=== PATIENT | female | born 1985 | race Caucasian/White ===

== ENCOUNTER 2017-08-12 06:07 | Inpatient (IN) | payer OTHER ==
[2017-08-12] VITALS (92 sets, daily range): BP systolic 71–149; BP diastolic 46–119; PULSE 82–232; RESP 17–19; TEMP 97.5–98.3
[~2017-08-12] VITALS: Ht 160 cm; Wt 73.0 kg
[2017-08-12] MEDS ORDERED: PENICILLIN G POT 5,000,000 UNITS/NS 100 ML (Mini-Bag Plus) IV ONE ×2 (07:00)
[2017-08-12] MEDS ORDERED: LIDOCAINE HCL 1% 50 ML VIAL I-DERMAL PRN (07:00)
[2017-08-12] MEDS ORDERED: MINERAL OIL 10 ML VIAL TOPICAL PRN ×2 (07:00→07:30)
[2017-08-12] MEDS ORDERED: CITRIC ACID-SODIUM CITRATE LIQ 30 ML UDC PO SCH (07:00)
[2017-08-12] MEDS ORDERED: OXYTOCIN 30 UNITS 500ML PREMIX IV ONE (07:00)
[2017-08-12] MEDS ORDERED: NS 500 ML BOLUS IV PRN (07:00)
[2017-08-12] MEDS: LACTATED RINGER'S 1000 ML IV SCH ×2 (07:00→15:00)
[2017-08-12] MEDS ORDERED: NS 1000 ML IV PRN (07:00)
[2017-08-12] MEDS ORDERED: LACTATED RINGER'S 1000 ML BOLUS IV PRN (07:00)
[2017-08-12] MEDS ORDERED: LIDOCAINE HCL 1% 50 ML VIAL INFIL PRN (07:00)
--- NOTE | 2017-08-12 07:24 | HHI.HP ---
HPI Chief Complaint CC: 39 weeks with favorable Mckee score SALLY 3 Date Seen: Aug 12, 2017 Time Seen: 07:18 Travel History International Travel<30 Days: No Contact w/Intl Traveler<30Days: No Known Affected Area: No History of Present Illness HPI 31 yo mwf at 39 weeks desirous of induction. 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 PNC with HOGA beginning 8 weeks EDC by LMP and imaging. No PTL, GDM or HTN. Normal course with reassuring evaluations. proven to 6 pounds 11 ounces. GBS+ GFM no BARNEY,N,V,blurred vision or RUQT. No leaking or bleeding. Mild UCs with some show last night. History Past Medical History Medical History: Denies Significant Hx Past Surgical History Narrative Surgical umbilical hernia repair in 2010 Family History Family History: Negative Social History Alcohol Use: No Tobacco Use: No Substance Abuse: No Allergies-Medications (Allergen,Severity, Reaction): Coded Allergies: No Known Allergies (Unverified , 08/12/17) Review of Systems General / Constitutional: No: Fever, Weight Gain, Chills, Other Physical Exam Vital Signs Date Time Temp Pulse Resp B/P (MAP) Pulse Ox O2 Delivery O2 Flow Rate FiO2 08/12/17 06:51 104 116/78 (91) Narrative GENERAL: Well-nourished, well-developed patient. SKIN: Warm and dry. HEAD: Normocephalic and atraumatic. EYES: No scleral icterus. No injection or drainage. ENT: No nasal drainage noted. Mucous membranes pink. Airway patent. NECK: Supple, trachea midline. No JVD. CARDIOVASCULAR: Regular rate and rhythm without murmurs, gallops, or rubs. RESPIRATORY: Breath sounds equal bilaterally. No accessory muscle use. BREASTS: Bilateral exam showed no masses , no retractions, no nipple discharge. ABDOMEN/GI: Abdomen soft, non-tender, bowel sounds present, no rebound, no guarding term fundus EFW 7 1/2 pelvis adequate 50%/2/-2 AROM ? light meconium with copious fluid head gently directed onto cervix and well applied strip category 1 EXTREMITIES: No cyanosis or edema. BACK: Nontender without obvious deformity. No CVA tenderness. NEUROLOGICAL: Awake and alert. Motor and sensory grossly within normal limits. Five out of 5 muscle strength in all muscle groups. Normal speech. Caprini VTE Risk Assessment Caprini VTE Risk Assessment: No/Low Risk (score <= 1) Caprini Risk Assessment Model Point Value = 1 Point Value = 2 Point Value = 3 Point Value = 5 Age 41-60 Minor surgery BMI > 25 kg/m2 Swollen legs Varicose veins or History of unexplained or recurrent spontaneous Oral contraceptives or hormone replacement Sepsis (< 1 month) Serious lung disease, including pneumonia (< 1 month) Abnormal pulmonary function Acute myocardial infarction Congestive heart failure (< 1 month) History of inflammatory bowel disease Medical patient at bed rest Age 61-74 Arthroscopic surgery Major open surgery (> 45 min) Laparoscopic surgery (> 45 min) Malignancy Confined to bed (> 72 hours) Immobilizing plaster cast Central venous access Age >= 75 History of VTE Family history of VTE Factor V Leiden Prothrombin [id number] Lupus anticoagulant Anticardiolipin antibodies Elevated serum homocysteine Heparin-induced thrombocytopenia Other congenital or acquired thrombophilia Stroke (< 1 month) Elective arthroplasty Hip, pelvis, or leg fracture Acute spinal cord injury (< 1 month) Prophylaxis Regimen Total Risk Factor Score Risk Level Prophylaxis Regimen 0-1 Low Early ambulation 2 Moderate Order ONE of the following: *Sequential Compression Device (SCD) *Heparin 5000 units SQ BID 3-4 Higher Order ONE of the following medications: *Heparin 5000 units SQ TID *Enoxaparin/Lovenox 40 mg SQ daily (WT < 150 kg, CrCl > 30 mL/min) *Enoxaparin/Lovenox 30 mg SQ daily (WT < 150 kg, CrCl > 10-29 mL/min) *Enoxaparin/Lovenox 30 mg SQ BID (WT < 150 kg, CrCl > 30 mL/min) AND/OR *Sequential Compression Device (SCD) 5 or more Highest Order ONE of the following medications: *Heparin 5000 units SQ TID (Preferred with Epidurals) *Enoxaparin/Lovenox 40 mg SQ daily (WT < 150 kg, CrCl > 30 mL/min) *Enoxaparin/Lovenox 30 mg SQ daily (WT < 150 kg, CrCl > 10-29 mL/min) *Enoxaparin/Lovenox 30 mg SQ BID (WT < 150 kg, CrCl > 30 mL/min) AND *Sequential Compression Device (SCD) Data Data Orders Orders Admit To Inpatient (08/12/17 ) Vital Signs (Adult) .Per protocol (08/12/17 06:20) Activity Oob Ad Mary (08/12/17 06:20) Heart (08/12/17 06:20) Amnioinfusion (08/12/17 06:20) Urinary Catheter Management .ONCE (08/12/17 06:20) Diet Liquid (08/12/17 Breakfast) Complete Blood Count With Diff (08/12/17 06:20) Hold Clot (08/12/17 06:20) Abo/Rh Blood Type (08/12/17 06:20) Urinalysis - C+S If Indicated (08/12/17 06:20) Drug Screen, Random Urine (08/12/17 06:20) Resp Oxygen Non Rebreathe Mask (08/12/17 ) ^ Epidural / Intrathecal Infus (08/12/17 06:20) Lactated Ringer's 1000 Ml Inj (Lr 1000 M (08/12/17 07:00) Lactated Ringer's 1000 Ml Inj (Lr 1000 M (08/12/17 07:00) Sodium Chlorid 0.9% 500 Ml Inj (Ns 500 M (08/12/17 07:00) Sodium Chlor 0.9% 1000 Ml Inj (Ns 1000 M (08/12/17 07:00) Lidocaine 1% Inj (50 Ml) (Xylocaine 1% I (08/12/17 07:00) Citric Acid-Sodium Citrate Liq (Bicitra (08/12/17 07:00) Fentanyl Inj (Fentanyl Inj) (08/12/17 07:00) Fentanyl Inj (Fentanyl Inj) (08/12/17 07:00) Penicillin G Potassium Inj (Pfizerpen-G (08/12/17 07:00) Penicillin G Potassium Inj (Pfizerpen-G (08/12/17 11:00) Oxytocin 30 Units-500ml Premix (Pitocin (08/12/17 07:00) Lidocaine 1% Inj (50 Ml) (Xylocaine 1% I (08/12/17 07:00) Light Mineral Oil (Muri-Lube Oil) (08/12/17 07:00) ^ Non Stress Test (08/12/17 07:17) Response To Medication .Post New Med Administration, Reaction (08/12/17 07:17) ^ Discontinue Medication (08/12/17 07:17) Oxytocin Drip (2-2-30) (08/12/17 07:30) Assessment/Plan Problem List: (1) Group B streptococcal carriage complicating ICD Codes: O99.820 - Streptococcus B carrier state complicating (2) Third trimester ICD Codes: Z34.93 - Encounter for supervision of normal , unspecified , third trimester Assessment and Plan GBS prophylaxis augment if needed epidural if needed anticipate colpo at 6 weeks pp Danielle Charles MD Aug 12, 2017 07:24
[2017-08-12 07:25] LABS: AUTOMATED NEUTROPHIL # 4.8 TH/MM3 (1.8-7.7); BASOPHIL % 0.3 % (0.0-2.0); EOSINOPHIL # 0.1 TH/MM3 (0-0.4); EOSINOPHIL % 1.1 % (0.0-4.0); HEMATOCRIT 36.9 % (35.0-46.0); HEMOGLOBIN 12.5 GM/DL (11.6-15.3); LYMPH % 24.5 % (9.0-44.0); LYMPHOCYTE # 1.8 TH/MM3 (1.0-4.8); MEAN CELL VOLUME 92.4 FL (80.0-100.0); MEAN CORPUSCULAR HEMOGLOBIN 31.3 PG (27.0-34.0); MEAN CORPUSCULAR HGB CONC 33.9 % (32.0-36.0); MEAN PLATELET VOLUME 8.6 FL (7.0-11.0); MONO % 8.8 % (0.0-8.0); MONOCYTE # 0.7 TH/MM3 (0-0.9); NEUT % 65.3 % (16.0-70.0); PLATELET COUNT 187 TH/MM3 (150-450); RED BLOOD COUNT 3.99 MIL/MM3 (4.00-5.30); RED CELL DISTRIBUTION WIDTH 13.2 % (11.6-17.2); WHITE BLOOD COUNT 7.4 TH/MM3 (4.0-11.0)
[2017-08-12] MEDS ORDERED: OXYTOCIN 30 UNITS-500ML PREMIX 500 ML IV SCH ×2 (07:30→18:45)
[2017-08-12] MEDS ORDERED: PENICILLIN G POTASSIUM INJ 5,000,000 UNITS in SODIUM CHLORIDE 0.9% INJ 100 ML IV ONE (07:30)
[2017-08-12] MEDS ORDERED: LIDOCAINE HCL 1% 20 ML VIAL INFIL PRN (07:30)
[2017-08-12] MEDS ORDERED: OXYTOCIN 30 UNITS-500ML PREMIX 500 ML IV ONE (07:30)
[2017-08-12 07:53] LABS: BACTERIA, URINE OCC /hpf; BILIRUBIN, URINE NEG (NEG); BLOOD, URINE SMALL (NEG); GLUCOSE,URINE NEG (NEG); HYALINE CAST, URINE 1 /lpf (RARE); KETONE, URINE NEG (NEG); MUCUS URINE FEW /lpf (OCC); NITRITE,URINE NEG (NEG); PH, URINE 5.5 (5.0-8.5); SQUAMOUS EPITHELIAL CELL URINE 9 /hpf (0-5); URINE COLOR YELLOW (YELLW/STRAW); URINE LEUKOCYTE ESTERASE MOD (NEG)
[2017-08-12] MEDS: PENICILLIN G POT 2,500,000 UNITS/NS 100 ML IV SCH ×6 (11:07→18:16)
[2017-08-12] MEDS: PENICILLIN G POTASSIUM INJ 2,500,000 UNITS in SODIUM CHLORIDE 0.9% INJ 100 ML IV SCH ×2 (12:00→16:00)
[2017-08-12] MEDS ORDERED: ePHEDrine/NS 25 MG/5 ML SYRINGE ONE (12:15)
[2017-08-12] MEDS ORDERED: fentaNYL 2MCG-BUPIV 0.125% INJ 100 ML ONE (12:15)
[2017-08-12] MEDS ORDERED: NO SYSTEM NARCOTICS PRN (14:15)
[2017-08-12] MEDS ORDERED: ePHEDrine/NS 25 MG/5 ML SYRINGE IV PUSH PRN (14:15)
[2017-08-12] MEDS ORDERED: fentaNYL 2MCG-BUPIV 0.125% 100 ML EPIDURAL SCH (14:15)
[2017-08-12] MEDS ORDERED: DO NOT ADMINISTER ANTICOAGULANTS PRN (14:15)
[2017-08-12] MEDS ORDERED: MEASLES, MUMPS, RUBELLA VACCINE 0.5 ML VIAL SQ ONE (16:00)
[2017-08-12] MEDS ORDERED: DIPHTH/TETANUS/ACEL PERTUSSIS (BOOSTER) 0.5 ML VIAL/PFS IM ONE (16:00)
--- NOTE | 2017-08-12 17:42 | PD.OB.DELI ---
Weeks gestation: 39 Gest age assessed date: Aug 12, 2017 Gest age assessed time: 17:41 Pt started active labor?: Yes Active labor start date: Aug 12, 2017 Active labor start time: 08:00 Medical induction of labor?: Yes Medical induction start date: Aug 12, 2017 Medical induction start time: 08:00 Artificial rupture of membrane: Yes Artificial ROM date: Aug 12, 2017 Artifical ROM time: 08:00 Anesthesia: Epidural Episiotomy: None Vaginal Delivery: Normal Presentation: Occiput anterior Nuchal Cord: None Delayed cord clamping (45 sec): Yes Infant: Male Delivery date: Aug 12, 2017 Delivery time: 17:41 One Minute : 8 Five Minute : 9 Weight: 8 pounds Placenta: Spontaneous delivery Laceration: No lacerations Estimated blood loss: 200 Danielle Charles MD Aug 12, 2017 17:42
[2017-08-12] MEDS ORDERED: IBUPROFEN 800 MG TAB PO PRN (18:30)
[2017-08-12] MEDS ORDERED: SODIUM CHLORIDE 0.9% FLUSH 10 ML FLUSH IV FLUSH PRN (18:30)
[2017-08-12] MEDS ORDERED: ACETAMINOPHEN 325 MG TAB PO PRN (18:30)
[2017-08-12] MEDS ORDERED: WITCH HAZEL 50%/GLYCERIN 12.5% 40 PAD JAR TOPICAL PRN (18:30)
[2017-08-12] MEDS ORDERED: BENZOCAINE 20% TOPICAL SPRAY 60 ML CAN TOPICAL PRN (18:30)
[2017-08-12] MEDS ORDERED: ALUMINUM/MAGNESIUM/SIMETH 30 ML CUP PO PRN (18:30)
[2017-08-12] MEDS ORDERED: DOCUSATE SODIUM 50 MG/SENNA 8.6 MG TAB PO PRN (18:45)
[2017-08-12] MEDS ORDERED: ONDANSETRON ODT 4 MG TAB PO PRN (18:45)
[2017-08-12] MEDS ORDERED: ZOLPIDEM TARTRATE 5 MG TAB PO PRN (21:00)
[2017-08-12] MEDS ORDERED: SODIUM CHLORIDE 0.9% FLUSH 10 ML FLUSH IV FLUSH SCH (21:00)
[2017-08-13] MEDS: LACTATED RINGER'S 1000 ML IV SCH ×2 (07:37→16:17)
[2017-08-13] MEDS: PENICILLIN G POT 2,500,000 UNITS/NS 100 ML IV SCH ×4 (07:37→16:17)
[2017-08-13 08:00] VITALS: BP 105/53; PULSE 88; RESP 15; TEMP 98.4; O2SAT 96
[2017-08-13] MEDS ORDERED: KETOROLAC TROMETHAMINE 30 MG/ML (IVP) VIAL IV PUSH ONE (08:45)
[2017-08-13] MEDS: IBUPROFEN 800 MG TAB PO SCH ×2 (15:23→23:51)
[2017-08-13 21:00] VITALS: BP 96/66; PULSE 81; RESP 18; TEMP 97.9
[2017-08-14] MEDS: IBUPROFEN 800 MG TAB PO SCH (06:26)
[2017-08-14] MEDS: LACTATED RINGER'S 1000 ML IV SCH (07:00)
[2017-08-14] MEDS: PENICILLIN G POT 2,500,000 UNITS/NS 100 ML IV SCH ×4 (07:00→11:00)
[2017-08-14 08:00] VITALS: BP 86/58; PULSE 87; RESP 15; TEMP 97.6; O2SAT 97
--- NOTE | 2017-08-14 11:15 | HHI.OB ---
Subjective Post Day: 2 Remarks nursing well pain controlled bleeding minimal Objective Vitals/I&O Vital Signs Date Time Temp Pulse Resp B/P (MAP) Pulse Ox O2 Delivery O2 Flow Rate FiO2 08/14/17 08:00 97.6 97 08/14/17 08:00 87 86/58 (67) 08/14/17 08:00 15 08/13/17 21:00 97.9 81 18 96/66 (76) Objective Remarks GENERAL: Well-nourished, well-developed patient. CARDIOVASCULAR: Regular rate and rhythm without murmurs, gallops, or rubs. RESPIRATORY: Breath sounds equal bilaterally. No accessory muscle use. ABDOMEN/GI: Abdomen soft, non-tender. Fundus: Firm, non-tender at umbilicus. GENITOURINARY: Light to moderate bleeding. EXTREMITIES: No cyanosis or edema, non-tender, without signs of DVT. Medications and IVs Current Medications Medications (Trade) Dose Ordered Sig/Zohreh Route Start Time Stop Time Status Last Admin Lactated Ringer's 1,000 ml @ 125 mls/hr Q8H IV 08/12/17 07:00 08/12/17 15:00 Lactated Ringer's 1,000 ml @ 3,000 mls/hr BOLUS PRN IV 08/12/17 07:00 08/12/17 14:00 Sodium Chloride 500 ml @ 1,000 mls/hr BOLUS PRN IV 08/12/17 07:00 Sodium Chloride 1,000 ml @ 100 mls/hr Q10H PRN IV 08/12/17 07:00 (Bicitra Liq) 30 ml RABIES INSPECTOR PO 08/12/17 07:00 08/15/17 06:59 (fentaNYL INJ) 50 mcg Q1H PRN IV PUSH 08/12/17 07:00 (fentaNYL INJ) 100 mcg Q1H PRN IV PUSH 08/12/17 07:00 Penicillin G Potassium 0136702 units/Sodium Chloride 100 ml @ 200 mls/hr Q4H IV 08/12/17 11:00 08/12/17 16:51 (Muri-Lube Oil) 10 ml UNSCH PRN TOPICAL 08/12/17 07:00 Oxytocin 500 ml @ 2 mls/hr TITRATE IV 08/12/17 07:30 08/12/17 10:22 Fentanyl/ Bupivacaine HCl 100 ml @ 0 mls/hr TITRATE EPIDURAL 08/12/17 14:15 (NS Flush) 2 ml BID IV FLUSH 08/12/17 21:00 (NS Flush) 2 ml UNSCH PRN IV FLUSH 08/12/17 18:30 (Tylenol) 650 mg Q4H PRN PO 08/12/17 18:30 08/12/17 18:52 (Americaine 20% Top Spr) 1 spray Q4H PRN TOPICAL 08/12/17 18:30 (Tucks Pads) 1 applic QID PRN TOPICAL 08/12/17 18:30 (Bri-Colace) 2 tab Q12H PRN PO 08/12/17 18:45 08/13/17 23:51 (Ambien) 5 mg HS PRN PO 08/12/17 21:00 (Mag-Al Plus Susp Liq) 15 ml Q8H PRN PO 08/12/17 18:30 (Zofran Odt) 4 mg Q6H PRN PO 08/12/17 18:45 (Motrin) 800 mg Q8HR PO 08/13/17 14:00 08/14/17 06:26 Assessment/Plan Problem List: (1) Group B streptococcal carriage complicating ICD Codes: O99.820 - Streptococcus B carrier state complicating (2) Third trimester ICD Codes: Z34.93 - Encounter for supervision of normal , unspecified , third trimester Assessment and Plan GBS prophylaxis augment if needed epidural if needed anticipate colpo at 6 weeks pp 08/15/17 11;30 doing well and ready for discharge parents counseled and infant circumcised home now Danielle Charles MD Aug 14, 2017 11:15
[2017-08-14] MEDS ORDERED: IBUP1TAB7 PO (11:16)
--- NOTE | 2017-08-14 11:17 | HHI.DCPOC ---
Discharge Care Plan Report Symptoms to Your Doctor -Temperature above 100.5 degrees -Redness, of incision or excessive or foul smelling drainage -Unusual pain or calf pain -Increased vaginal bleeding -Painful or difficulty urinating -Feelings of extreme sadness or anxiety after 2 weeks Goals to Promote Your Health * To prevent worsening of your condition and complications * To maintain your health at the optimal level Directions to Meet Your Goals Take your medications as prescribed Follow your dietary instruction Follow activity as directed Ensure plenty of rest for recovery Drink fluids for hydration Keep your appointments as scheduled Take your immunizations and boosters as scheduled If your symptoms worsen call your PCP, if no PCP go to Urgent Care Center or Emergency Room Smoking is Dangerous to Your Health. Avoid second hand smoke Call the 24-hour crisis hotline for domestic abuse at Danielle Charles MD Aug 14, 2017 11:17
== END 2017-08-14 13:20 | disposition home or self-care (01) | DRG 775 ==
LOC: H2EB 06:07 → H1EA 19:38
PROVIDERS: ADMIT Obstetrics & Gynecology; ATTEND Obstetrics & Gynecology
PROC: 10E0XZZ Delivery of Products of Conception, External Approach (ICD-10-PCS; principal; 2017-08-12)
PROC: 3E033VJ Introduction of Other Hormone into Peripheral Vein, Percutaneous Approach (ICD-10-PCS; 2017-08-12)
PROC: 10907ZC Drainage of Amniotic Fluid, Therapeutic from Products of Conception, Via Natural or Artificial Opening (ICD-10-PCS; 2017-08-12)
PROC: 00HU33Z Insertion of Infusion Device into Spinal Canal, Percutaneous Approach (ICD-10-PCS; 2017-08-12)
PROC: 3E0R3BZ Introduction of Anesthetic Agent into Spinal Canal, Percutaneous Approach (ICD-10-PCS; 2017-08-12)
DX: O26.893 Other specified pregnancy related conditions, third trimester (principal); D06.9 Carcinoma in situ of cervix, unspecified; O99.824 Streptococcus B carrier state complicating childbirth; Z3A.39 39 weeks gestation of pregnancy; Z37.0 Single live birth
CPT/HCPCS: 59025; 80307; 81001; 85025; 86900; 86901; 90715; J1885; J2540; J2590; J3010; J7120